=== PATIENT | female | born 1990 | race Caucasian/White ===

== ENCOUNTER → 2016-06-21 | Day surgery (SDC) | payer OTHER ==
[~2016-06-21] VITALS: Ht 167.6 cm; Wt 70.5 kg
[~2016-06-21] MED LIST: AMPICILLIN-SULBACTAM INJ 3 GM VIAL ONE; BACITRACIN TOP OINT 15 GM TUBE ONE; DEXAMETHASONE SOD PHOS 4 MG/ML VIAL ONE; FAMOTIDINE 20 MG/2 ML VIAL ONE; FLUT1SPR5 EACH NARE; HYDR-3516 PO; LACTATED RINGER'S 1000 ML INJ 1,000 ML ONE; LIDOCAINE 1%/EPINEPHrine 1:100,000 SOLN 30 ML VIAL ONE; MIDAZOLAM HCL 2 MG/2 ML VIAL ONE; MUCI30TA2 PO; NEOSTIGMINE 3 MG/3 ML SYR IV ONE; ONDANSETRON HCL 4 MG/2 ML VIAL IV PUSH ONE; OXYMETAZOLINE HCL 0.05% 15 ML NASAL SPRAY ONE; PHENYLEPH/NS 1000 MCG/10 ML SYR IV ONE; PREN29TA PO; PROPOFOL 200 MG/20 ML AMP IV ONE; SODIUM CHLORIDE 0.9% INJ 100 ML ONE; fentaNYL CITRATE 250 MCG/5 ML AMP ONE
[2016-06-21 07:10] VITALS: BP 131/84; PULSE 112; RESP 20; TEMP 98.2; O2SAT 98
[2016-06-21 07:26] LABS: AUTOMATED NEUTROPHIL # 4.7 TH/MM3 (1.8-7.7); BASOPHIL # 0.1 TH/MM3 (0-0.2); BASOPHIL % 1.2 % (0.0-2.0); EOSINOPHIL # 0.1 TH/MM3 (0-0.4); EOSINOPHIL % 1.4 % (0.0-4.0); HEMATOCRIT 38.6 % (35.0-46.0); HEMO FLAGS DIFF FINAL; LYMPH % 28.2 % (9.0-44.0); LYMPHOCYTE # 2.1 TH/MM3 (1.0-4.8); MEAN CELL VOLUME 87.7 FL (80.0-100.0); MEAN CORPUSCULAR HEMOGLOBIN 30.5 PG (27.0-34.0); MEAN CORPUSCULAR HGB CONC 34.7 % (32.0-36.0); MONO % 5.8 % (0.0-8.0); NEUT % 63.4 % (16.0-70.0); PLATELET COUNT 242 TH/MM3 (150-450); RED CELL DISTRIBUTION WIDTH 12.3 % (11.6-17.2); WHITE BLOOD COUNT 7.4 TH/MM3 (4.0-11.0)
[2016-06-21 07:42] LABS: BETA HCG QUANT LESS THAN 1 MIU/ML (0-5)
[2016-06-21 09:35] VITALS: PULSE 104
[2016-06-21 10:30] VITALS: PULSE 88; TEMP 99.2
[2016-06-21 11:00] VITALS: BP 107/67; PULSE 90; RESP 14; O2SAT 98
--- NOTE | 2016-07-25 07:55 | MP ---
cc: FERNY LA M.D. DATE OF OPERATION June 21, [address] Ferny La PREOPERATIVE DIAGNOSES 1. Nasal airway obstruction. 2. Nasal septal deviation. 3. Hypertrophy of inferior turbinates. POSTOPERATIVE DIAGNOSES 1. Nasal airway obstruction. 2. Nasal septal deviation. 3. Hypertrophy of inferior turbinates. OPERATION PERFORMED 1. Open repair of nasal septal fracture. 2. Bilateral submucosal resection of inferior turbinates. INDICATIONS Documented in the history and physical. DESCRIPTION OF OPERATION The patient was taken to OR #6 and placed in the supine position. Following induction of general anesthesia and intubation, the nose was packed bilaterally with cotton pledgets saturated in 0.05% Oxymetazoline. The nasal septum and inferior turbinates were injected with a total of 6 mL of 1% Xylocaine with epinephrine 1:100,000, then she was prepped and draped for surgery. The packing was removed and a hemitransfixion incision was made in the left nasal vestibule and through this incision the mucosa of septum was elevated bilaterally as far as the junction of the bony cartilaginous septum. This exposed very thick twisted and irregular quadrangular cartilage with evidence of old, long-healed septal fracture. A cumulative area of 2 x 2.5 cm was removed preserving 1.5 cm dorsal and caudal cartilaginous struts. When this was completed, the mucosa was elevated from the bony septum and the maxillary crest and these were removed using Terrance-Hector forceps and a 6-mm Raul chisel. The incision was then closed with a running suture of 4-0 chromic and the mucosal layers of septum were approximated to each other with a quilting stitch of 4-0 plain gut. The inferior turbinates were then fractured out medially and stab incisions made along their inferior surfaces. Through these incisions the submucosal soft tissue was reduced using a curette and preserving the conchal bone. The incisions were then cauterized using suction Bovie at 35 kilgore and the remnants of the inferior turbinates were then relateralized to the lateral nasal wall. The nose was then packed with Merocel tampons coated in bacitracin ointment and the procedure was terminated. The patient was reversed from anesthesia and taken to recovery in good condition. There were no complications. Blood loss was 80 mL. MD KIM Salomon/SUNIL /7:24 AM /7:51 AM
== END | disposition home or self-care (01) ==
LOC: PHSDC 06:11
PROVIDERS: ATTEND Otolaryngology
DX: J34.89 Other specified disorders of nose and nasal sinuses (principal); J34.2 Deviated nasal septum; J34.3 Hypertrophy of nasal turbinates; J32.9 Chronic sinusitis, unspecified
CPT/HCPCS: 00160; 30140; 30520; 36415; 84702; 85025; J0295; J1100; J2250; J2370; J2405; J2710; J3010; J7120

== ENCOUNTER → 2016-10-12 | Outpatient (CLI) | payer OTHER ==
[~2016-10-12] MED LIST changes: -AMPICILLIN-SULBACTAM INJ 3 GM VIAL ONE; -BACITRACIN TOP OINT 15 GM TUBE ONE; -DEXAMETHASONE SOD PHOS 4 MG/ML VIAL ONE; -FAMOTIDINE 20 MG/2 ML VIAL ONE; -LACTATED RINGER'S 1000 ML INJ 1,000 ML ONE; -LIDOCAINE 1%/EPINEPHrine 1:100,000 SOLN 30 ML VIAL ONE; -MIDAZOLAM HCL 2 MG/2 ML VIAL ONE; -NEOSTIGMINE 3 MG/3 ML SYR IV ONE; -ONDANSETRON HCL 4 MG/2 ML VIAL IV PUSH ONE; -OXYMETAZOLINE HCL 0.05% 15 ML NASAL SPRAY ONE; -PHENYLEPH/NS 1000 MCG/10 ML SYR IV ONE; -PROPOFOL 200 MG/20 ML AMP IV ONE; -SODIUM CHLORIDE 0.9% INJ 100 ML ONE; -fentaNYL CITRATE 250 MCG/5 ML AMP ONE
== END ==
LOC: HPND 09:48
PROVIDERS: ATTEND Obstetrics & Gynecology
DX: Z36 Encounter for antenatal screening of mother (principal)
CPT/HCPCS: 36416; 76813